=== PATIENT | female | born 1960 | race Caucasian/White ===

== ENCOUNTER 2016-07-27 10:32 | Outpatient (CLI) | payer MEDICAID ==
--- NOTE | 2016-07-27 11:56 | XRay Report ---
CHEST 2 VIEWS: INDICATION: Breast cancer with new cough. COMPARISON: 06/17/2016 PET/CT images. FINDINGS: PA and lateral chest radiographs again demonstrate bilateral pulmonary nodules/masses, the largest approximately 4.6 x 3.5 cm in the right upper lobe. An approximately 3 cm right perihilar mass also noted. Numerous other smaller nodules/masses within the left lung as also the right lung base identified. Right hilar/suprahilar lymphadenopathy suspected. Normal heart size. No large pleural effusions at this time. Left mastectomy and left axillary surgical clips again seen as also right subclavian chest port tip along the SVC. Unremarkable bones. CONCLUSION: 1. Bilateral pulmonary metastases again noted, possibly radiographically smaller/improved. 2. Interval resolution of right pleural effusion as well. 3. Stable iatrogenic changes. Thank you for the opportunity to participate in this patient's care.
== END 2016-07-27 10:33 | disposition home or self-care (01) ==
LOC: SPVIMAG 10:32
PROVIDERS: ATTEND Internal Medicine Hematology
DX: C78.01 Secondary malignant neoplasm of right lung (principal); C78.02 Secondary malignant neoplasm of left lung; Z90.12 Acquired absence of left breast and nipple; R05 Cough
CPT/HCPCS: 71020

== ENCOUNTER 2016-09-30 11:07 | Outpatient (CLI) | payer MEDICAID ==
--- NOTE | 2016-10-05 08:54 | PET Report ---
PET SB TO MT SUBSEQUENT: HISTORY: Restaging of breast cancer. TECHNIQUE: 13.6 millicuries F-18 FDG was administered intravenously. Noncontrast CT images and PET images were obtained from the skull base to the proximal thighs. Fused images were reviewed on a workstation. The patient's blood glucose level measured 117. COMPARISON: 06/17/16. FINDINGS: BRAIN: physiologic FDG uptake in the imaged brain. NECK: physiologic FDG uptake. CHEST: Left mastectomy changes are identified. An ovoid soft tissue density mass between the left pectoral muscles is relatively stable in size measuring 3.1 x 1.9 cm. Max SUV has increased from 8.2 to 8.3. MEDIASTINUM: There are multiple mildly enlarged lymph nodes in the mediastinum which are stable in size measuring up to 2 cm. Enlarged lymph nodes are identified in the precarinal chain, AP window and bilateral hilar chains. Max SUV in precarinal lymph nodes has decreased from 6.8 to 6.6. Hypermetabolic lymph nodes in the AP window have increased from 4.7 to 5.6. LUNGS: Multiple, bilateral pulmonary masses have increased in size and number by approximately 10-20% since the previous exam. A right upper lobe mass has increased from 3.2 x 2.4 cm to 3.4 x 2.8 cm. Max SUV has increased from 8.3 to 8.5. A right perihilar mass has increased from 3.2 x 2.8 cm to 3.8 x 3.2 cm. Max SUV has decreased from 12.4 to 12.0. A left upper lobe mass has increased from 2.1 x 1.8 cm to 3.0 x 2.1 cm. Max SUV has increased from 8.6 to 8.7. PLEURA/PERICARDIUM: physiologic FDG uptake. HEPATOBILIARY: physiologic FDG uptake. Mean liver SUV measures 4.4 as opposed to 4.0 on the previous exam. PANCREAS: physiologic FDG uptake. SPLEEN: physiologic FDG uptake. ADRENAL GLANDS: physiologic FDG uptake. KIDNEYS/RENAL COLLECTING SYSTEMS: physiologic FDG uptake. BOWEL/MESENTERY: physiologic FDG uptake. PELVIC VISCERA: physiologic FDG uptake. ABDOMINAL/PELVIC LYMPH NODES: physiologic FDG uptake. MUSCULOSKELETAL: At least 3 areas of abnormal bony uptake are identified. There is new focal uptake in the left side of C3 with Max SUV measuring 3.6. There is increased uptake in the posterior elements of T9 with Max SUV increasing from 4.9 to 7.7. There is decreased uptake in the right side of the sacrum with Max SUV decreasing from 13.8 to 4.2. Focal uptake in the right fifth lateral rib has resolved and is now equal to background. IMPRESSION: There is a mixed response to therapy since 06/17/16 exam as outlined above. Overall mild progression of disease is demonstrated. Bilateral pulmonary masses have increased in size and number as described. Multiple mediastinal lymph nodes are stable in size and number but demonstrates a mild increase in activity. Left chest wall recurrence is relatively stable. There are 3 bony lesions. One appears to be new within C3. Hypermetabolic activity in one lesion has resolved. Please see above.
== END 2016-09-30 11:08 | disposition home or self-care (01) ==
LOC: PET 11:07
PROVIDERS: ATTEND Internal Medicine Hematology
DX: C50.412 Malignant neoplasm of upper-outer quadrant of left female breast (principal)
CPT/HCPCS: 78815; A9552; 82962

== ENCOUNTER 2016-11-19 09:10 | Outpatient (CLI) | payer MEDICAID ==
[~2016-11-19 09:10] MED LIST: NORMODYNE IV ONE
[2016-11-19 10:00] LABS: Blood Urea Nitrogen 10 mg/dL (7-17)
--- NOTE | 2016-11-20 13:03 | Magnetic Resonance Report ---
MRI LUMBAR SPINE WITHOUT AND WITH CONTRAST: 11/19/16 CLINICAL: Low back pain radiating to the right leg. History of breast cancer with known right sacral metastasis. COMPARISON: 09/30/16 and 06/17/16 CT PET. TECHNIQUE: Sagittal and axial T1 and T2, sagittal STIR and sagittal and axial postcontrast T1 fat sat sequences a 1.5 Kelly magnet. 15.0 cc of Multihance was injected intravenously for the contrast portion of the exam and consent was obtained prior to the administration of the contrast. FINDINGS: Normal vertebral body height, alignment and disc spaces. Normal marrow signal in the lumbar spine. However, there is sacral edema involving entire right sacrum. The edema crosses the midline and involves the left sacrum at S1 and involves the right sacrum and midline at S2. The involved areas of the sacrum and the adjacent soft tissues demonstrate abnormal enhancement. No other abnormal enhancement is identified. No intrathecal enhancement. The conus medullaris is normal and terminates at L1. L1-2: Intact. L2-3: Intact. L3-4: Intact. L4-5: A central annular tear with a small broad-based central disc protrusion. No neural foraminal stenosis. L5-S1: Intact. IMPRESSION: 1. Sacral metastasis with more extensive involvement of the sacrum compared to the previous CT PET exams. 2. No evidence of lumbar metastasis. 3. L4-5 degenerative disc disease with a central annular tear and a small broad-based central disc protrusion.
== END 2016-11-19 09:11 | disposition home or self-care (01) ==
LOC: MRI 09:10
PROVIDERS: ATTEND Internal Medicine Hematology
DX: C79.51 Secondary malignant neoplasm of bone (principal); C50.412 Malignant neoplasm of upper-outer quadrant of left female breast; M51.26 Other intervertebral disc displacement, lumbar region; M51.36 Other intervertebral disc degeneration, lumbar region; I10 Essential (primary) hypertension; Z85.3 Personal history of malignant neoplasm of breast
CPT/HCPCS: 36415; 72158; 82565; 84520; A9577

== ENCOUNTER 2016-11-22 17:12 | Outpatient (CLI) | payer MEDICAID ==
--- NOTE | 2016-11-23 08:18 | Magnetic Resonance Report ---
MR THORACIC SPINE WITH AND WITHOUT CONTRAST HISTORY: Back pain, breast cancer. TECHNIQUE: Multisequence, multiplanar MRI before and after IV gadolinium. Fat suppression technique was utilized. COMPARISON: PET CT dated 09/30/16. Findings: There is an enhancing mass arising from the posterior elements of T9 on the left side measuring 3.5 x 3.6 cm in axial plane and 4.3 cm in craniocaudal plane. The mass appears to destroy the T9 posterior elements on the left side and left posterior ninth rib. The mass has increased from 1.1 x 1.6 cm on the previous PET/CT. The mass also extends into the spinal canal at the level of T9 with mild central canal narrowing. There also appears to be a second 1 cm bony lesion within the corpus of T9 which is new since the previous PET/CT. No other bony metastasis in the thoracic region. Otherwise, there is normal height and alignment of the thoracic vertebral bodies. No compression deformity or malalignment. The disc spaces are within normal limits. No bulging disc or herniation is identified. The thoracic spinal cord is normal size and signal intensity throughout. No abnormal cord signal or enhancement. Extensive metastasis or collapse throughout three-view right lung is noted and increased since the previous PET/CT. Left upper lobe masses have also increased significantly in size. Impression: Increased size of the bony metastasis involving the posterior elements of T9 on the left side. The mass also extends to destroy the left posterior ninth rib and extends into the spinal canal resulting in mild canal narrowing. New 1 cm bony metastasis to the corpus of T9. Increased tumor burden in the lungs which is partially imaged on this exam.
== END 2016-11-22 17:13 | disposition home or self-care (01) ==
LOC: MRI 17:12
PROVIDERS: ATTEND Internal Medicine Hematology
DX: C79.51 Secondary malignant neoplasm of bone (principal); C50.412 Malignant neoplasm of upper-outer quadrant of left female breast; R91.8 Other nonspecific abnormal finding of lung field; M54.5 Low back pain
CPT/HCPCS: 72157; A9577